=== PATIENT | male | born 1935 | race Caucasian/White ===

== ENCOUNTER 2021-08-24 21:10 | Emergency (ER) | payer MEDICARE, BC ==
[~2021-08-24] VITALS: Ht 172.7 cm; Wt 68.0 kg
--- NOTE | 2021-08-24 21:26 | NUR ---
KEVYN RIOJAS FROM DETENTION FOR ABDOMINAL DISTENTION. PER DETENTION, "WHEN PRESSED ON ABDOMEN BROWN URINE COMES OUT." PT DENIES PAIN. AWAKE, AAOX1. BREATHING EVEN AND UNLABORED. ABDOMEN DISTENDED. TO ER BED 12. WILL CONTINUE TO MONITOR.
--- NOTE | 2021-08-24 21:35 | NUR ---
LAB AT BEDSIDE
--- NOTE | 2021-08-24 21:35 | NUR ---
URINE SAMPLE OBTAINED AND SENT TO LAB
[2021-08-24 21:52] LABS: BASOPHILS % (AUTO) 0.2 % (0.0-2.0); EOSINOPHILS % (AUTO) 1.9 % (0.0-6.0); HEMATOCRIT 41 % (39-51); HEMOGLOBIN 12.8 g/dL (13.5-17.5); LYMPHOCYTES # (AUTO) 1.6 K/uL (0.8-4.8); LYMPHOCYTES % (AUTO) 9.6 % (20.0-44.0); MEAN CORPUSCULAR HGB CONC 31 g/dl (31.0-36.0); MEAN CORPUSCULAR VOLUME 85 fL (80-96); MONOCYTES # (AUTO) 1.3 K/uL (0.1-1.30); NEUTROPHILS # (AUTO) 13.3 K/uL (1.8-8.9); NEUTROPHILS % (AUTO) 80.3 % (43.0-81.0); PLATELET COUNT (AUTO) 364 K/uL (150-450); RED BLOOD CELL COUNT(AUTO) 4.79 MIL/uL (4.5-6.0); WHITE BLOOD COUNT (AUTO) 16.6 K/uL (4.3-11.0)
--- NOTE | 2021-08-24 21:55 | NUR ---
[facility] [id number], [place] [address] LYDIA [phone]. [address] [facility]
--- NOTE | 2021-08-24 22:05 | NUR ---
FISHER CATHTER PLACED. 1500 ML DRAINAGE. WILLIAM URINE, CLEAR.
[2021-08-24 22:10] LABS: BILIRUBIN,URINE SMALL (NEGATIVE); COLOR,URINE DARK YELLOW (YELLOW); LEUKOCYTE ESTERASE ,URINE NEGATIVE (NEGATIVE); NITRITE, URINE NEGATIVE (NEGATIVE); PH,URINE 5.5 (5.0-8.0); PROTEIN,URINE NEGATIVE (NEGATIVE); UGLUCOSE NEGATIVE (NEGATIVE); UROBILINOGEN,URINE 0.2 EU/dL (0.2)
[2021-08-24 22:17] LABS: ALANINE AMINOTRANSFERASE 27 U/L (12-78); ALKALINE PHOSPHATASE 83 U/L (46-116); ASPARTATE AMINOTRANSFERASE 25 U/L (15-37); BILIRUBIN,DIRECT 0.2 mg/dL (0.0-0.2); BILIRUBIN,TOTAL 0.5 mg/dL (0.2-1.0); CALCIUM, SERUM 8.4 mg/dL (8.5-10.1); CARBON DIOXIDE 26 mmol/L (21-32); CREATININE 2.3 mg/dL (0.6-1.3); GLUCOSE 113 mg/dL (74-106); LIPASE 91 U/L (73-393); TOTAL PROTEIN, SERUM 6.2 g/dL (6.4-8.2); UREA NITROGEN, BLOOD 33 mg/dL (7-18)
[2021-08-24 22:31] LABS: CHLORIDE 101 mmol/L (98-107); POTASSIUM 4.1 mmol/L (3.5-5.1); SODIUM SERUM 138 mmol/L (136-145)
[2021-08-25] MEDS ORDERED: TAMS-12 PO (00:26)
--- NOTE | 2021-08-25 01:07 | NUR ---
[facility] CALLED FOR TRANSPORT. ETA 1 HR
--- NOTE | 2021-08-25 02:15 | NUR ---
[facility] AT BEDSIDE FOR TRANSPORT.
[2021-08-25 02:39] VITALS: BP 132/80
== END 2021-08-25 02:40 | disposition home or self-care (01) ==
LOC: ER 21:16
DX: R33.8 Other retention of urine (principal); R14.0 Abdominal distension (gaseous); J45.909 Unspecified asthma, uncomplicated; J44.9 Chronic obstructive pulmonary disease, unspecified; Z79.899 Other long term (current) drug therapy
CPT/HCPCS: 36415; 71045-TC; 80048-TC; 80076-TC; 83690-TC; 85025-TC